=== PATIENT | female | born 1960 | race Caucasian/White ===

== ENCOUNTER 2022-05-30 00:21 | Emergency (ER) | payer OTHER, SELFPAY ==
--- NOTE | ~2022-05-30 | XR_ITS ---
EXAMINATION: XR forearm LT 2V CLINICAL INFORMATION: Reason for Exam pain trauma swelling COMPARISON: None. TECHNIQUE: Two views of the forearm FINDINGS: Subtle lucency through the radial head, only appreciated on a single view. Lateral view performed with the arm and not in 90 degree flexion limits assessment for joint effusion. Joint spaces are maintained without significant degenerative change. XR/XR forearm LT 2V IMPRESSION: Subtle lucency through the radial head, only appreciated on a single view for which a nondisplaced radial head fracture cannot be excluded, recommend correlation with 3/4 view radiograph of the elbow given limitations of the exam.
--- NOTE | ~2022-05-30 | XR_ITS ---
EXAMINATION: XR ELBOW, LEFT CLINICAL INFORMATION: Radial head lucency COMPARISON: Forearm radiographs from earlier today TECHNIQUE: AP, lateral, and oblique views of the left elbow. FINDINGS: Osseous alignment is anatomic. No acute fracture is seen. Prior subtle radial head lucency from prior exam is not visible on these images. No significant focal soft tissue abnormality or joint effusion. XR/XR elbow LT min 3V IMPRESSION: No acute findings identified.
[2022-05-30 00:24] VITALS: BP 157/90; PULSE 88; RESP 15; TEMP 36.8; O2SAT 99; BMI 33.3
--- NOTE | 2022-05-30 00:47 | ED_ITS ---
HPI - Extremity Problem General Chief complaint: Extremity Injury, Upper Stated complaint: arm inj @ work Time Seen by Provider: 05/30/22 00:43 Source: patient Mode of arrival: ambulatory Limitations: no limitations History of Present Illness HPI Narrative: 62-year-old female presents with injury to her left forearm. Patient got her arm crushed in a stretcher while at work. She is having a difficult time with r millie of motion, has taken ibuprofen, has applied ice and elevated. MD Complaint: extremity pain and extremity swelling Onset (ago): hour(s) (Within the hour arrival) Pain Consistency: constant Location: left and upper extremity Severity scale (1-10): 8 Quality: aching Radiation: proximal and distal Relieving factors: cold therapy, immobilization, elevation and rest Exacerbating factors: range of motion and palpation Associated symptoms: denies other symptoms Related Data Allergies Allergy/AdvReac Type Severity Reaction Status Date / Time Penicillins Allergy Anaphylaxis Verified 05/30/22 00:29 Review of Systems Review of Systems: Constitutional: No Fever, No Chills ENT/Mouth: No Ear Pain, No Hoarseness, No sore throat Eyes: No Eye Pain, No Swelling, No Redness, No Foreign Body Cardiovascular: No Chest Pain, No SOB Respiratory: No Cough, No Dyspnea Gastrointestinal: No Nausea, No Vomiting, No Diarrhea, No abdominal Pain Genitourinary: No Dysuria, No Hematuria Musculoskeletal: positive left forearm pain, No Myalgias, No Joint Swelling Skin: Left forearm bruising, No Skin lacerations, No rash Neuro: No Weakness, No Numbness, No Paresthesias, No Loss of Consciousness, No Dizziness, No Headache Psych: No Anxiety/Panic, No Depression Heme/Lymph: no easy bruising, no Lymphadenopathy Endocrine: No Polyuria, No Polydipsia Yes all other systems are reviewed and are negative [facility] Past Medical History Attestation statement: The following information was validated with the patient. Source: old records reviewed Social History Social History Advance Directives: No Advance Directives Information Provided: Yes Physical Exam Vital Signs: Vital Signs: Last Vital Signs Temp 98.2 F 05/30/22 00:24 Pulse 88 05/30/22 00:24 Resp 15 05/30/22 00:24 BP 157/90 H 05/30/22 00:24 Pulse Ox 99 05/30/22 00:24 O2 Del Method 05/30/22 00:24 BMI result Body Mass Index 33.3 Appearance: Alert. Oriented X3. No acute distress. Eyes: Pupils equal, round and reactive to light. ENT: Pharynx normal. Neck: Normal inspection. Neck supple. CVS: Normal heart rate and rhythm. Pulses normal. Respiratory: No respiratory distress. Breath sounds normal. Abdomen: Soft and nontender. Skin: Bruising noted to the ulnar aspect of the mid left forearm. Skin warm and dry. Normal skin color. Normal skin turgor. Extremities: Swelling noted to the mid left forearm, decreased pronation and supination, full flexion extension of the elbow, grasp strength equal bilaterally, no indication of tendon deficit to digits. Brisk capillary refill and equal pulses bilaterally. Neuro: No motor deficit. No sensory deficit. Cranial nerves 2-12 intact. Course Course Course Narrative: 62-year-old female presents with a work related injury to her left forearm. Patient got her left arm crushed in a stretcher. She does have some visible bruising and swelling to the mid forearm on the ulnar aspect. 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 Full strength to all digits, no tendon deficit noted. X-rays of forearm are pending. 01:30 x-rays indicate radial head lucency, requesting x-rays of the elbow. 02:18 elbow x-rays are negative for radial head lucency that was seen on the forearm view. I did discuss this finding with the patient, patient states that she does not want further imaging or splinting. Patient will follow up with [facility] as needed. Patient verbalized understanding of and agrees to plan of care discharge home. Verbalized understanding signs and symptoms indicating need for emergent intervention. MDM - Extremity (Nontraumatic) MDM Narrative Medical decision making narrative: Fracture, dislocation, effusion, hematoma, soft tissue crush injury Medical Records Attestation: I reviewed the patient's medical records. Imaging Data Forearm x-ray: Attestation: I personally reviewed and interpreted this imaging study as follows: Radiologist's impression: EXAMINATION: XR forearm LT 2V CLINICAL INFORMATION: Reason for Exam pain trauma swelling COMPARISON: None. TECHNIQUE: Two views of the forearm FINDINGS: Subtle lucency through the radial head, only appreciated on a single view. Lateral view performed with the arm and not in 90 degree flexion limits assessment for joint effusion.? Joint spaces are maintained without significant degenerative change. XR/XR forearm LT 2V IMPRESSION: Subtle lucency through the radial head, only appreciated on a single view for which a nondisplaced radial head fracture cannot be excluded, recommend correlation with 3/4 view radiograph of the elbow given limitations of the exam. Elbow x-ray: Attestation: I personally reviewed and interpreted this imaging study as mia escalante: Radiologist's impression: EXAMINATION: XR ELBOW, LEFT CLINICAL INFORMATION: Radial head lucency? COMPARISON: Forearm radiographs from earlier today? TECHNIQUE: AP, lateral, and oblique views of the left elbow. FINDINGS: Osseous alignment is anatomic. No acute fracture is seen. Prior subtle radial head lucency from prior exam is not visible on these images. No significant focal soft tissue abnormality or joint effusion.? XR/XR elbow LT min 3V IMPRESSION: No acute findings identified. Discharge Plan Discharge Clinical Impression: Soft tissue injury of left forearm Patient Disposition: Home, Self-Care Instructions: Compartment Syndrome (DC), Crush Injury (ED), R.I.C.E. Treatment (ED) Additional Instructions: You were evaluated for a crush injury while at work. X-rays are negative for acute findings requiring emergent intervention. Please follow up with [facility] as needed if symptoms persist. Alternate Tylenol 650 mg every 6 hours and Motrin 600 mg every 6 hours as needed for pain. Write down what time you take these medications to prevent accidental overdose. Rest ice and elevate the injury to help reduce pain and swelling. Please read the instructions for compartment syndrome. You do not have compartment syndrome at this time however crush injuries can progress to compartment syndrome. Thank you for choosing this emergency department for evaluation. Please follow-up with primary care physician as needed. Return to the emergency department for any new, concerning, or worsening symptoms. Referrals: [facility] [Provider Group] - 3 days (Left forearm injury) Stand Alone Forms: Work/School Release
[2022-05-30] MEDS: Acetaminophen 325 MG TABLET 975 MG PO (01:05)
== END 2022-05-30 02:35 | disposition home or self-care (01) ==
PROVIDERS: Emergency Provider Emergency Medicine
DX: M79.632 Pain in left forearm (principal)
CPT/HCPCS: 73080; 73090; 99283